=== PATIENT | female | born 1985 | race Caucasian/White ===

== ENCOUNTER 2018-02-05 22:35 | Emergency (ER) | payer SELFPAY ==
[~2018-02-05] VITALS: Ht 160 cm; Wt 120.2 kg
[2018-02-05 22:57] VITALS: Ht 160 cm; Wt 120.2 kg
[2018-02-06 00:12] VITALS: BP 162/88
== END 2018-02-06 00:12 | disposition home or self-care (01) ==
LOC: ED 22:35
DX: J02.9 Acute pharyngitis, unspecified (principal); E11.9 Type 2 diabetes mellitus without complications; Z88.1 Allergy status to other antibiotic agents
CPT/HCPCS: J0696; J1100